=== PATIENT | female | born 1980 | race Hispanic/Latino ===

== ENCOUNTER 2017-07-16 15:55 | Inpatient (IN) | payer OTHER ==
[2017-07-16] MEDS: Lactated Ringer's 1,000 ML IV SCH ×2 (15:55→16:42)
[2017-07-16] MEDS ORDERED: ceFAZolin 2 GM in Sodium Chloride 0.9% 100 ML IVPB ONE (16:18)
[2017-07-16 16:21] LABS: BASO % 0.4 % (0.0-2.0); EOS # 0.1 K/uL (0.0-0.7); EOS % 1.4 % (0.0-4.0); HEMATOCRIT 37.8 % (34.0-47.0); LYMPH # 2.3 K/uL (1.0-4.3); LYMPH % 24.5 % (20.0-40.0); MEAN CELL VOLUME 82.3 fl (81.0-99.0); MEAN CORPUSCULAR HEMOGLOBIN 27.4 pg (27.0-31.0); MEAN CORPUSCULAR HGB CONC 33.3 g/dL (33.0-37.0); MEAN PLATELET VOLUME 9.7 fl (7.2-11.7); MONO # 0.7 K/uL (0.0-0.8); MONO % 7.9 % (0.0-10.0); NEUT # 6.2 K/uL (1.8-7.0); NEUT % 65.8 % (50.0-75.0); RED CELL DISTRIBUTION WIDTH 14.7 % (11.5-14.5); WHITE BLOOD COUNT 9.4 K/uL (4.8-10.8)
[2017-07-16] MEDS ORDERED: Oxytocin 30 units/LR 500ML 30 U/500 ML BAG IV ONE (16:21)
[2017-07-16 16:26] VITALS: BMI 35.3
[2017-07-16] MEDS ORDERED: ePHEDrine 50 mg/ml Inj ONE (17:05)
[2017-07-16] MEDS ORDERED: Sodium Chloride 0.9% 10 ML IV ONE (17:05)
[2017-07-16] MEDS ORDERED: Phenylephrine 10 mg/ml Inj ONE (17:05)
[2017-07-16] MEDS ORDERED: Morphine 1 mg/ml preservative-free Inj(Duramorph) ONE (17:09)
[2017-07-16] MEDS ORDERED: Oxycodone/Acetaminophen 5/325 mg Tab PO PRN ×2 (18:10)
[2017-07-16] MEDS ORDERED: Naloxone 0.4 mg/ml Inj (Adult) IVP PRN (18:37)
[2017-07-16] MEDS ORDERED: DiphenhydrAMINE 50 mg/ml Inj IVP PRN (18:37)
[2017-07-16] MEDS ORDERED: Simethicone 80 mg Chewtab PO SCH (22:00)
[2017-07-17] MEDS ORDERED: Oxycodone/Acetaminophen 5/325 mg Tab PO PRN ×2 (02:42)
[2017-07-17] MEDS ORDERED: DiphenhydrAMINE 50 mg/ml Inj IVP PRN (02:42)
[2017-07-17] MEDS ORDERED: Naloxone 0.4 mg/ml Inj (Adult) IVP PRN (02:42)
[2017-07-17] MEDS ORDERED: Lactated Ringer's 1,000 ML IV SCH (02:45)
--- NOTE | 2017-07-17 03:54 | OP ---
PROCEDURE DATE: PREOPERATIVE DIAGNOSES: Intrauterine at 39 weeks. Previous sections. Declined trial of labor. POSTOPERATIVE DIAGNOSES: Intrauterine at 39 weeks. Previous sections. Declined trial of labor. OPERATION PERFORMED: Repeat low flap transverse section by Pfannenstiel skin incision. SURGEON: Lenin Monreal MD. BRIEFCASE SEWER: Myriam Garces MD. Dr. Garces was instrumental under the care of the patient. She helped to create exposure, helpful in delivering the infant, helpful in obtaining hemostasis and closure of the patient and the procedure would not have been possible without her assistance. TYPE OF ANESTHESIA: Spinal. ANESTHESIA ADMINISTERED BY: Manav Zapata MD. ESTIMATED BLOOD LOSS: 800 mL. URINE OUTPUT: Mejias catheter put out approximately 200 mL of clear urine. OPERATIVE FINDINGS: Baby girl weighing 3970 g. Apgars 9 and 9. Normal uterus, tubes, and ovaries were identified. COMPLICATIONS: There were no complications. DESCRIPTION OF PROCEDURE: After informed consent was obtained, the patient was taken to the operating room where she was given spinal anesthesia. The patient was then prepped and draped in normal sterile fashion. A Pfannenstiel skin incision was then made with the scalpel and carried down to the underlying layer of fascia. The fascia was nicked in the midline. The fascial incision was then extended laterally with the curved Rosas scissors. The superior aspect of the fascial incision was then grasped with Matthew clamps and elevated up and the rectus muscles were dissected off using both sharp and blunt dissection. Attention was then turned to the inferior aspect of the fascial incision which, in similar fashion, was grasped with Matthew clamps, elevated up, and the rectus muscles were dissected off using both sharp and blunt dissection. The rectus muscles were then in midline. The peritoneum identified and entered sharply with the Metzenbaum scissors. The peritoneal incision was then extended superiorly and inferiorly with good visualization of the bladder. The bladder blade was then inserted. The vesicouterine peritoneum was identified, grasped with smooth pickups, and entered sharply with the Metzenbaum scissors. The incision was then extended laterally. The bladder flap was created digitally. A bladder blade was then inserted. A low transverse uterine incision was made with the scalpel. The incision was then extended laterally with the bandage scissors. The 's head was then delivered atraumatically. The nose and mouth were suctioned with DeLee suction trap. The cord was clamped and cut. The infant was handed off to the awaiting pediatricians. The placenta was removed manually. The uterus was exteriorized and cleared of all clots and debris. The uterine incision was repaired with 0 Vicryl in a running locked fashion. A second layer of the same suture was used to obtain excellent hemostasis. The abdomen was then copiously irrigated. The irrigant was removed with the suction device. The uterus was returned to the abdomen and hemostasis was noted. The peritoneum was then closed with 2-0 Vicryl in a running fashion. The muscle was re-approximated with 0 Vicryl in an interrupted fashion. The fascia was closed with 0 Vicryl in a running fashion. The skin was closed with 3-0 on a Canelo needle. All sponge, lap, needle, and instrument counts were correct x2 and the patient was taken to the recovery room in awake and stable condition. Lenin Monreal MD
[2017-07-17] MEDS: Simethicone 80 mg Chewtab PO SCH ×3 (05:29→21:53)
[2017-07-17 07:17] LABS: HEMATOCRIT 33.7 % (34.0-47.0); MEAN CELL VOLUME 83.3 fl (81.0-99.0); MEAN CORPUSCULAR HEMOGLOBIN 26.6 pg (27.0-31.0); MEAN CORPUSCULAR HGB CONC 31.9 g/dL (33.0-37.0); RED CELL DISTRIBUTION WIDTH 15.2 % (11.5-14.5); WHITE BLOOD COUNT 11.8 K/uL (4.8-10.8)
--- NOTE | 2017-07-17 19:02 | OBPPN ---
Datetime: 07/17/2017 18:56 PP Pain Prov: Within normal limits PP Nausea Prov: Denies PP Flatus Prov: Yes PP BM Prov: No PP Breasts Prov: Normal PP Heart Prov: Normal PP Lungs Prov: Normal PP Abdomen/Uterus Prov: Normal PP Lochia Prov: Normal PP Vulva/Perineum Prov: Normal PP CVA Tenderness Prov: Normal PP Extremities Prov: Normal PP C/S Incision Prov: Normal PP Impression Prov: Normal progression PP Plan Prov: Continue present management PP Progress Note Prov: She feels fine. Incsional pain. Tolerating diet and ambulating without diffi culty H/H A: S/P C/S day 1 PLAN cont postop care
[2017-07-18] MEDS: Simethicone 80 mg Chewtab PO SCH ×5 (04:24→22:15)
--- NOTE | 2017-07-18 09:34 | OBPPN ---
Datetime: 07/18/2017 09:30 PP Pain Prov: Within normal limits PP Nausea Prov: Denies PP Flatus Prov: Yes PP Breasts Prov: Not Done PP Heart Prov: Normal PP Lungs Prov: Normal PP Abdomen/Uterus Prov: Normal PP Lochia Prov: Normal PP Vulva/Perineum Prov: Not Done PP CVA Tenderness Prov: Normal PP Extremities Prov: Normal PP C/S Incision Prov: Normal PP Impression Prov: Normal progression PP Plan Prov: Continue present management PP Progress Note Prov: Patient doing well ambulating tolerating diet and pain controlled with Percoc et Vital signs stable afebrile Uterus firm below the umbilicus Incision clean dry and intact Extremities no Homans Postoperative day #2 Ambulate, analgesia, anticipate discharge in a.m. Vital Signs Provider PP: Reviewed
[2017-07-19] MEDS: Simethicone 80 mg Chewtab PO SCH ×2 (04:51→09:28)
[2017-07-19 09:31] VITALS: TEMP 98.1
--- NOTE | 2017-07-19 10:01 | OBDCSUM ---
Datetime: 07/19/2017 10:00 Discharged to, Provider: Home Follow up at, Provider: Dr. Monreal Disch Instr Activity: Normal activity Disch Instr Diet: Regular Discharge Instructions, Provider: Routine instructions given Discharge Diagnosis, Provider: Term Delivered Discharge Time: 07/19/2017 10:00 Follow up in weeks, Provider: 1 week Contraception discussed, Prov: No Disch Activity Restrictions: No exercising; No lifting; No driving; No sexual activity; Nothing in v agina - [place], tampons, douche
--- NOTE | 2017-07-19 10:01 | OBPPN ---
Datetime: 07/19/2017 09:59 PP Pain Prov: Within normal limits PP Nausea Prov: Denies PP Flatus Prov: Yes PP BM Prov: Yes PP Abdomen/Uterus Prov: Normal PP Lochia Prov: Normal PP Extremities Prov: Normal PP C/S Incision Prov: Normal PP Progress Prov: Normal PP Comments Phys Exam Prov: Incision: intact w/ steri strips PP Impression Prov: Normal progression PP Plan Prov: Discharge PP Progress Note Prov: POD 3 s/p Repeat c/s, doing well, breast and bottle feeding Rx's motrin and percocet given Discharge home today Vital Signs Provider PP: Reviewed
[2017-07-19 11:11] VITALS: BP 125/79; PULSE 74; RESP 20
[2017-07-19 21:39] VITALS: O2SAT 98
--- NOTE | 2017-08-01 10:42 | OBDS ---
DELIVERY PERSONNEL Delivery Doctor: Favio Monreal MD Medical Receptionist: Angelina Pearson RN Anesthesiologist: Stephanie Zapata MD MATERNAL INFORMATION Delivery Anesthesia: Spinal Medications in Delivery: 30 units pitocin in 500 ml lr Estimated Blood Loss (ml): 800 Placenta Cultured: No Maternal Complications: None Provider Comments: see op report LABOR SUMMARY EDC: 07/20/2017 00:00 No. Babies in Womb: 1 Attempted: No Labor Anesthesia: Intrathecal LABOR INFORMATION Reason for Induction: Not Applicable Oxytocin: N/A Group B Beta Strep: Negative Antibiotics # of Doses: 1 Antibiotics Time of Last Dose: 1710 Steroids Given: None Reason Steroids Not Administered: Not Applicable MEMBRANES Membranes Rupture Method: Artificial Rupture of Membranes: 07/16/2017 17:39 Length of Rupture (hrs): 0.00 Amniotic Fluid Color: Clear Amniotic Fluid Amount: Moderate Amniotic Fluid Odor: Normal STAGES OF LABOR Stage 3 hrs: 0 Stage 3 min: 1 VAGINAL DELIVERY Episiotomy: None Laceration Extension: N/A Laceration Type: None Sponge Count Correct: N/A Sharps Count Correct: N/A CSECTION DELIVERY Primary Indication: Repeat Elective Secondary Indication: N/A CSection Urgency: Elective CSection Incidence: Repeat Labor: No Labor Elective: Elective CSection Incision: N/A BABY A INFORMATION Delivery Date/Time: 07/16/2017 17:39 Method of Delivery: Born in Route : No : N/A Forceps: N/A Vacuum Extraction: N/A Shoulder Dystocia : No SHOULDER DYSTOCIA BABY A Delivery Date/Time: 07/16/2017 17:39 PRESENTATION/POSITION BABY A Presentation: Cephalic Cephalic Presentation: Vertex Vertex Position: Left Occipital Anterior Breech Presentation: N/A PLACENTA INFORMATION BABY A Placenta Delivery Time : 07/16/2017 17:40 Placenta Method of Delivery: Manual Removal Placenta Status: Delivered SCORES BABY A Heart Rate 1 min: >100 bpm Resp Effort 1 min: Good Cry Reflex Irritability 1 min: Cough or Sneeze or Pulls Away Muscle Tone 1 min: Active Motion Color 1 min: Body [place], Extremities Blue SCORE 1 MIN: 9 Heart Rate 5 min: >100 bpm Resp Effort 5 min: Good Cry Reflex Irritability 5 min: Cough or Sneeze or Pulls Away Muscle Tone 5 min: Active Motion Color 5 min: Body [place], Extremities Blue SCORE 5 MIN: 9 INFANT INFORMATION BABY A Gestational Age at Delivery: 39.3 Gestational Status: Term Outcome : Liveborn Infant Condition : Stable Sex: Female IDENTIFICATION/MEDS BABY A ID Band Number: [id number] ID Band Location: Left Leg; Left Arm WEIGHT/LENGTH BABY A Birthweight (gms): 3970 Weight (lb): 8 Infant Weight (oz): 12 CORD INFORMATION BABY A No. Cord Vessels: 3 Nuchal Cord : Around Neck x1, Loose Infant Suction: Mouth; Nose ASSESSMENT BABY A Infant Complications: None Physical Findings at Delivery: Within Normal Limits Respirations: Appears Normal Supervisor Area/ALS Called : No Care By: Dr Quesada Transferred To: Remains with Mother
== END 2017-07-19 12:45 | disposition home or self-care (01) | DRG 766 ==
LOC: H.EROB2 15:55 → H.L&D 16:08 → H.OB/GYN 21:43
PROVIDERS: ADMIT Obstetrics & Gynecology Gynecology; ATTEND Obstetrics & Gynecology Gynecology
PROC: 4A1HXCZ Monitoring of Products of Conception, Cardiac Rate, External Approach (ICD-10-PCS; principal; 2017-07-16)
PROC: 10D00Z1 Extraction of Products of Conception, Low, Open Approach (ICD-10-PCS; 2017-07-16)
DX: O34.211 Maternal care for low transverse scar from previous cesarean delivery (principal); N85.8 Other specified noninflammatory disorders of uterus; Z3A.39 39 weeks gestation of pregnancy; Z37.0 Single live birth; O69.81X0 Labor and delivery complicated by cord around neck, without compression, not applicable or unspecified